=== PATIENT | female | born 2000 | race American Indian/Alaskan Native ===

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

== ENCOUNTER 2021-10-13 12:26 | Emergency (ER) | payer SELFPAY ==
[2021-10-13 12:41] VITALS: BP 143/71
--- NOTE | 2021-10-13 13:57 | Emergency Department Report ---
ED Dysuria HPI - HPI Chief Complaint: Urogenital-Female Stated Complaint: POSS UTI Time Seen by Provider: 10/13/21 12:51 Duration: 3 Days Location of Discomfort: Suprapubic Severity: Mild Symptoms: Dysuria: No, Frequency: No, Suprapubic Pain: Yes, Flank Pain: No, Fever: No, Hematuria: No, Abdominal Pain: No, Previous UTI's: Yes Other History: 21 yo comes in with 3 day hx suprapubic pressure/ not pain/ no dysuria/no back pain/ no fever/ no chills/ no vag d/c. ambulatory non toxic and non ill appearing on exam ED Review of Systems ROS: Stated complaint: POSS UTI Other details as noted in HPI Comment: All other systems reviewed and negative ED Past Medical Hx - Past Medical History Previous Medical History?: Yes Hx Asthma: Yes - Surgical History Past Surgical History?: No - Family History Family history: no significant - Social History Smoking Status: Current Some Day Smoker Substance Use Type: None - Medications Home Medications: Home Medications Medication Instructions Recorded Confirmed Last Taken Type Sulfamethoxazole/Trimethoprim 1 each PO BID #10 tablet 10/13/21 Unknown Rx [Bactrim DS TAB] Dysuria Exam - Exam General: Vital signs noted. No distress. Alert and acting appropriately. Exam: Yes Moist Mucous Membranes, No CVA Tenderness, No Abdominal Tenderness, No Rigidity or Guarding ED Course Vital Signs 10/13/21 12:38 Temperature 98.8 F Pulse Rate 92 H Respiratory 16 Rate Blood Pressure 143/71 [Left] O2 Sat by Pulse 100 Oximetry ED Medical Decision Making - Medical Decision Making Vital Signs 10/13/21 12:38 Temperature 98.8 F Pulse Rate 92 H Respiratory 16 Rate Blood Pressure 143/71 [Left] O2 Sat by Pulse 100 Oximetry Lab Results 10/13/21 Range/Units 14:23 Urine Color Yellow (Yellow) Urine Turbidity Cloudy (Clear) Urine pH 6.0 (5.0-7.0) Ur Specific [place] 1.013 (1.003-1.030) Urine Protein 30 mg/dl (Negative) mg/dL Urine Glucose (UA) Neg (Negative) mg/dL Urine Ketones Neg (Negative) mg/dL Urine Blood Mod (Negative) Urine Nitrite Neg (Negative) Urine Bilirubin Neg (Negative) Urine Urobilinogen < 2.0 (<2.0) mg/dL Ur Leukocyte Esterase Lg (Negative) Urine WBC (Auto) > 182.0 H (0.0-6.0) /HPF Urine RBC (Auto) 12.0 (0.0-6.0) /HPF U Epithel Cells (Auto) 19.0 H (0-13.0) /HPF Urine Mucus 2+ /HPF Urine HCG, Qual Negative (Negative) upreg neg ua noted lmp 2 w ago no back pain or abd pain has had uti like this in the past no vag bleeding no vag d/c no fever or chills abd snt no cva tenderness no tachycardia no hypotension rocephin im given in er urine culture pending dc home with d/c plan of care including meds/ follow up and hydration. She verb alizes understanding of plan of care. - Differential Diagnosis ro preg/uti Critical care attestation.: If time is entered above; I have spent that time in minutes in the direct care of this critically ill patient, excluding procedure time. ED Disposition Clinical Impression: UTI (urinary tract infection) Qualifiers: Urinary tract infection type: site unspecified Hematuria presence: with hematuria Qualified Code(s): N39.0 - Urinary tract infection, site not specified Disposition: 01 HOME / SELF CARE / HOMELESS Is pt being admited?: No Does the pt Need Aspirin: No Condition: Stable Instructions: Urinary Tract Infection, Adult, [id number] Additional Instructions: stay well hydrated with water motrin or tylenol if you have fever azo over the counter for pain/dysuria antibiotic as ordered today until gone you must follow up with pcp to make sure this getting better referral to pcp given below Prescriptions: Sulfamethoxazole/Trimethoprim [Bactrim DS TAB] 1 each PO BID #10 tablet Referrals: ULISES CANTU MD [Staff Physician] - 3-5 Days Time of Disposition: 15:14
[2021-10-13 14:53] LABS: Bilirubin,Urine NEG (Negative); Blood,Urine MOD (Negative); Color,Urine Yellow (Yellow); Mucus,Urine 2+ /HPF; Urobilinogen,Urine < 2.0 mg/dL (<2.0)
[2021-10-13 15:00] LABS: WBC,Urine > 182.0 /HPF (0.0-6.0)
[2021-10-13 15:01] LABS: HCG Qualitative,Urine Negative (Negative)
[2021-10-13] MEDS ORDERED: LIDOCAINE-MPF (1%) 10 MG/1 ML VIAL 5 ML INFILTRATI ONE (15:07)
[2021-10-13] MEDS ORDERED: PHENAZOPYRIDINE 200 MG TAB PO ONE (15:13)
[2021-10-13] MEDS ORDERED: IBUPROFEN 800 MG TAB PO ONE (15:13)
== END 2021-10-13 15:26 | disposition home or self-care (01) ==
LOC: ED 12:26
DX: N39.0 Urinary tract infection, site not specified (principal); F17.200 Nicotine dependence, unspecified, uncomplicated; J45.909 Unspecified asthma, uncomplicated
CPT/HCPCS: 81001; 81025; 87086; 96372; 99283; J0696; J3490